=== PATIENT | female | born 1960 | race African-American/Black ===

== ENCOUNTER 2021-04-20 11:31 | Emergency (ER) | payer OTHER ==
[~2021-04-20] VITALS: Ht 160 cm; Wt 85.7 kg
[2021-04-20] MEDS ORDERED: NORVASC10 MG (11:55)
[2021-04-20] MEDS ORDERED: FAMOTIDINE40 MG (11:55)
[2021-04-20] MEDS ORDERED: KETO10TA2 PO (15:25)
[2021-04-20] MEDS ORDERED: NORFLEX100MG PO (15:25)
== END 2021-04-20 15:44 | disposition home or self-care (01) ==
LOC: ER 11:31
DX: M25.512 Pain in left shoulder (principal); M54.2 Cervicalgia